=== PATIENT | female | born 1980 | race African-American/Black ===

== ENCOUNTER 2019-01-23 14:48 | Emergency (ER) | payer OTHER ==
[~2019-01-23] VITALS: Ht 172.7 cm; Wt 133.8 kg
[2019-01-23 15:00] VITALS: BP 169/74
--- NOTE | 2019-01-23 15:14 | NUR ---
ED Nurse Note: pt walked in to ED due to feeling anxious for last 3 days. denies SI or HI. denies hearing voices or seeing things. AAO x4. respirations even and non-labored noted. will wait for the further order.
[2019-01-23 15:35] VITALS: BP 161/78
--- NOTE | 2019-01-23 15:47 | Emergency Room Report ---
History of Present Illness General Chief Complaint: General Complaint Source: Patient Present Illness HPI 38-year-old female with no significant past medical history here complaining of 3 days of shortness of breath and palpitations and extreme anxiety. Denies SI and HI and reports that she has been on Prozac in the past however was anatomical. Denies history of hypertension and diabetes however has not been to a doctor in many years. Denies abdominal pain, nausea vomiting, complains of lack of sleep however denies grandiosity impulsivity. Denies visual and auditory hallucinations. Denies urinary symptoms. Has not taken any medication denies drug use and smoking and alcohol intake. Patient also reports that she does not like to take anxiety medication. Allergies: Coded Allergies: No Known Allergies (Unverified , 01/23/19) Patient History Past Medical History: see triage record Past Surgical History: unable to obtain Pertinent Family History: none Last Menstrual Period: 12/27/18 Now: No Reviewed Nursing Documentation: PMH: Agreed; PSxH: Agreed Nursing Documentation-PMH Past Medical History: No History, Except For History Of Psychiatric Problem: Yes - Anxiety Review of Systems All Other Systems: negative except mentioned in HPI Physical Exam Vital Signs Date Time Temp Pulse Resp B/P (MAP) Pulse Ox O2 Delivery O2 Flow Rate FiO2 01/23/19 14:57 98.2 68 21 169/74 (105) 100 Room Air Sp02 EP Interpretation: reviewed, normal General Appearance: normal inspection, well appearing, no apparent distress Head: normocephalic, atraumatic Eyes: bilateral eye normal inspection, bilateral eye PERRL ENT: normal ENT inspection, hearing grossly normal, normal pharynx Neck: normal inspection, full range of motion, supple, thyroid normal Respiratory: normal inspection, chest non-tender, lungs clear, normal breath sounds, no rhonchi, no wheezing Cardiovascular #1: normal inspection, normal peripheral pulses, regular rate, rhythm, no murmur Gastrointestinal: normal inspection, normal bowel sounds, non tender, soft, no bruit Genitourinary: no CVA tenderness Musculoskeletal: normal inspection, back normal Neurologic: normal inspection, alert, oriented x3, responsive Psychiatric: judgement/insight normal, memory normal, anxious Skin: no rash Lymphatic: normal inspection, no adenopathy Medical Decision Making PA Attestation All my diagnosis and treatment plans were reviewed ad discussed with my supervising physician Dr. Sanchez Diagnostic Impression: Primary Impression: Anxiety ER Course 38-year-old female with no significant past medical history here complaining of 3 days of shortness of breath and palpitations and extreme anxiety. Denies SI and HI and reports that she has been on Prozac in the past however was anatomical. Denies history of hypertension and diabetes however has not been to a doctor in many years. Denies abdominal pain, nausea vomiting, complains of lack of sleep however denies grandiosity impulsivity. Denies visual and auditory hallucinations. Denies urinary symptoms. Has not taken any medication denies drug use and smoking and alcohol intake. Patient also reports that she does not like to take anxiety medication. Ddx considered but are not limited to: generalized anxiety disorder, panic attack, depression with psycotic featurs, bipolar disorder, drug overdose Vital signs: are WNL, pt. is afebrile H&PE are most consistent with: Anxiety ORDERS: 2-week supplies of Lexapro 10 mg and patient to follow-up with her primary care provider and psychiatrist, chest x-ray, EKG, CBC, CMP, UA, urine tox screen, urine test ED INTERVENTIONS: None required at this time. DISCHARGE: At this time pt. is stable for d/c to home. Will provide printed patient care instructions, and any necessary prescriptions. Care plan and follow up instructions have been discussed with the patient prior to discharge. Patient to follow-up with her primary care provider and psychiatry as I gave her a list of different psych facilities that she can go to patient also established primary care provider for her insurance that she was waiting for her lab results Second blood pressure reading was 143/80 EKG Diagnostic Results Rate: normal Rhythm: NSR ST Segments: no acute changes Chest X-Ray Diagnostic Results Chest X-Ray Diagnostic Results : Chest X-Ray Ordered: Yes # of Views/Limited/Complete: 1 View Indication: Other EP Interpretation: Yes PA Xray: Interpretation reviewed, by supervising MD, and agrees with findings. Interpretation: no consolidation, no effusion, no pneumothorax Impression: No acute disease Electronically Signed by: kwabena holliday PA-C Last Vital Signs Date Time Temp Pulse Resp B/P (MAP) Pulse Ox O2 Delivery O2 Flow Rate FiO2 01/23/19 15:35 60 161/78 01/23/19 15:00 98.2 21 100 Room Air Disposition: HOME, SELF-CARE Condition: Stable Scripts Escitalopram Oxalate* (LEXAPRO*) 10 Mg Tablet 10 MG ORAL DAILY, #14 TAB Prov: Kwabena El 01/23/19 Referrals: NOT CHOSEN IPA/MD,REFERRING (PCP) Patient Instructions: Generalized Anxiety Disorder Additional Instructions: Take medication as directed follow-up with your primary care provider Kwabena El Jan 23, 2019 15:47
[2019-01-23 15:49] LABS: APPEARANCE,URINE CLEAR; BILIRUBIN, URINE NEGATIVE (NEGATIVE); COLOR,URINE PALE YELLOW; GLUCOSE, URINE (UA) NEGATIVE (NEGATIVE); KETONES,URINE NEGATIVE (NEGATIVE); LEUKOCYTE ESTERASE ,URINE NEGATIVE (NEGATIVE); NITRITE,URINE NEGATIVE (NEGATIVE); PH,URINE 6.5 (4.5-8.0); PROTEIN,URINE NEGATIVE (NEGATIVE); UROBILINOGEN,URINE NORMAL MG/DL (0.0-1.0)
[2019-01-23 15:56] LABS: EOSINOPHILS % (AUTO) 2.4 % (0.0-3.0); HEMATOCRIT 38.8 % (37.0-47.0); HEMOGLOBIN 12.5 G/DL (12.0-16.0); MEAN CORPUSCULAR VOLUME 85 FL (80-99); MONOCYTES % (AUTO) 7.6 % (1.0-10.0); PLATELET COUNT 319 K/UL (150-450); RED BLOOD COUNT 4.56 M/UL (4.20-5.40); RED CELL DISTRIBUTION WIDTH 12.5 % (11.6-14.8); WHITE BLOOD COUNT 8.8 K/UL (4.8-10.8)
[2019-01-23 15:57] LABS: ANION GAP 6 mmol/L (5-15); BLOOD UREA NITROGEN 9 mg/dL (7-18); CARBON DIOXIDE 28 MMOL/L (21-32); CHLORIDE 105 MMOL/L (98-107); POTASSIUM 3.9 MMOL/L (3.5-5.1); SODIUM 139 MMOL/L (136-145)
[2019-01-23 16:01] LABS: ALANINE AMINOTRANSFERASE 21 U/L (12-78); ALBUMIN 3.8 G/DL (3.4-5.0); ALKALINE PHOSPHATASE 66 U/L (46-116); ASPARTATE AMINO TRANSFERASE 22 U/L (15-37); BILIRUBIN,TOTAL 0.4 MG/DL (0.2-1.0)
--- NOTE | 2019-01-23 16:29 | Diagnostic Imaging Report ---
History: PAIN Exam: XR CXR 1 VIEW Comparison: None available FINDINGS: The lungs appear clear. The cardiac silhouette appears upper limits for technique. The visualized osseous structures appear within limits. IMPRESSION: No evidence of acute disease.
[2019-01-23] MEDS ORDERED: LEXAPRO10 MG ORAL (16:41)
[2019-01-23 16:51] VITALS: BP 143/85
[2019-01-23 17:08] VITALS: BP 143/85
--- NOTE | 2019-01-23 17:08 | NUR ---
ER DISCHARGE NOTE: Patient is cleared to be discharged per ERMD, pt is aox4, on room air, with stable vital signs. pt was given dc and prescription instructions, pt was able to verbalize understanding, pt id band removed. pt is able to ambulate with steady gait. pt took all belongings.
== END 2019-01-23 17:09 | disposition home or self-care (01) ==
LOC: EMR 15:25
DX: F41.9 Anxiety disorder, unspecified (principal)
CPT/HCPCS: 36415; 71045; 80053; 80307; 81001; 81025; 84484; 85025; 93005; 99284